=== PATIENT | male | born 1950 | race Caucasian/White ===

== ENCOUNTER 2017-07-30 22:48 | Inpatient (IN) ==
[2017-07-31] MEDS ORDERED: ACETAMINOPHEN 325 MG TABLET PO PRN (00:15)
[2017-07-31] MEDS ORDERED: ONDANSETRON 4 MG/2 ML VIAL IV PRN (00:15)
[2017-07-31] MEDS ORDERED: ZALEPLON 5 MG CAPSULE PO PRN (00:15)
[2017-07-31] MEDS ORDERED: DEXTROSE 50% 25 GM/50 ML VIAL IV PRN ×3 (00:19→05:56)
[2017-07-31] MEDS ORDERED: GLUCAGON 1 MG VIAL IM PRN ×3 (00:19→05:56)
[2017-07-31] MEDS: NITROGLYCERIN 2% OINT 1 INCH/GM PACK TOP SCH ×4 (01:33→18:46)
[2017-07-31] MEDS ORDERED: ALBUTEROL 2.5 MG/3 ML NEB RESP TX PRN (02:03)
[2017-07-31] MEDS ORDERED: guaiFENesin 200 MG/10 ML UDCUP PO PRN (02:52)
[2017-07-31] MEDS ORDERED: CETIRIZINE 10 MG TABLET PO PRN (03:14)
[2017-07-31] MEDS ORDERED: ANORO ELLIPTA INH PRN (03:14)
[2017-07-31] MEDS ORDERED: TICAGRELOR 90 MG TABLET PO ONE (03:30)
[2017-07-31 04:59] LABS: Basophils # 0.1 10*3/uL (0.0-0.2); Eosinophils # 1.7 10*3/uL (0.0-0.87); Eosinophils % 12.9 % (0.00-10.9); Hematocrit 44.7 VOL% (42.0-52.0); Hemoglobin 14.7 GM/DL (14.0-18.0); Immature Granulocytes % 0.5 %; Immature Granulocytes Absolute 0.06 #; Lymphocytes # 2.2 10*3/uL (1.4-4.0); Lymphocytes % 16.3 % (21.2-54.2); Mean Corpuscular HGB Conc 32.9 GM/DL (32-36); Mean Corpuscular Hemoglobin 33 PG (27-34); Mean Corpuscular Volume 101.1 FL (87-102); Mean Platelet Volume 10.4 FL (9.6-12.0); Monocytes # 1.1 10*3/uL (0.11-0.8); Monocytes % 8.2 % (1.7-12.7); Neutrophils # 8.1 10*3/uL (1.4-7.4); Neutrophils % 61.1 % (38.7-73.9); Platelet Count 199 T/CUMM (130-400); Red Blood Count 4.42 MC/CUMM (3.8-5.5); Red Cell Distribution Width 14.6 % (9.3-17.3); White Blood Count 13.2 T/CUMM (4-12)
[2017-07-31 05:27] LABS: Eosinophils 11 % (0-10); Lymphocytes 16 % (20-55); Segmented Neutrophils 68 % (50-85)
[2017-07-31 05:28] LABS: Platelet Estimate Normal
[2017-07-31 05:29] LABS: Total Cells Counted 100
[2017-07-31 05:31] LABS: Albumin 3.2 G/DL (3.4-5.0); Bilirubin,Total 0.9 MG/DL (0.2-1.0); Calcium 8.9 MG/DL (8.5-10.1); Osmolality,Calculated 291.8 MOS/KG (273-304); Potassium 3.7 MMOL/L (3.5-5.1); Risk Ratio 4.34; Total Protein 6.4 G/DL (6.4-8.3); VLDL CHOLESTEROL 21.6 MG/DL
[2017-07-31] MEDS: INSULIN REGULAR 100 UNIT/ML SUBCUT SCH ×4 (07:43→22:28)
[2017-07-31] MEDS: ALBUTEROL/IPRATROPIUM 3 ML NEB RESP TX SCH ×3 (08:00→19:34)
[2017-07-31] MEDS: OMEGA 3 ACID ETHYL ESTERS 1 GM CAPSULE PO SCH ×2 (08:46→20:17)
[2017-07-31] MEDS: LOSARTAN 25 MG TABLET PO SCH (08:46)
[2017-07-31] MEDS: PANTOPRAZOLE 40 MG TABLET PO SCH (08:47)
[2017-07-31] MEDS: TICAGRELOR 90 MG TABLET PO SCH ×2 (08:47→20:17)
[2017-07-31] MEDS ORDERED: predniSONE 20 MG TABLET PO SCH (09:00)
[2017-07-31] MEDS ORDERED: ASPIRIN EC 325 MG TABLET PO SCH (09:00)
[2017-07-31] MEDS: methylPREDNISolone SOD SUC 40 MG/1 ML VIAL IV SCH ×2 (10:42→18:39)
[2017-07-31] MEDS: INSULIN GLARGINE 100 UNIT/ML SUBCUT SCH (11:59)
[2017-07-31] MEDS: LEVOFLOXACIN INJ 750 MG in PREMIX 1 EACH IV SCH (11:59)
[2017-07-31] MEDS ORDERED: VICTOZA SQ SCH (21:00)
[2017-08-01] MEDS: NITROGLYCERIN 2% OINT 1 INCH/GM PACK TOP SCH ×4 (00:08→20:39)
[2017-08-01] MEDS: ALBUTEROL/IPRATROPIUM 3 ML NEB RESP TX SCH ×4 (00:56→19:06)
[2017-08-01] MEDS: methylPREDNISolone SOD SUC 40 MG/1 ML VIAL IV SCH ×3 (01:50→21:37)
[2017-08-01] MEDS: INSULIN GLARGINE 100 UNIT/ML SUBCUT SCH (08:50)
[2017-08-01] MEDS: INSULIN REGULAR 100 UNIT/ML SUBCUT SCH ×4 (08:50→21:05)
[2017-08-01] MEDS: LOSARTAN 25 MG TABLET PO SCH (08:56)
[2017-08-01] MEDS: ASPIRIN CHEW 81 MG TABLET PO SCH (08:57)
[2017-08-01] MEDS: PANTOPRAZOLE 40 MG TABLET PO SCH (08:57)
[2017-08-01] MEDS: TICAGRELOR 90 MG TABLET PO SCH ×2 (08:57→20:39)
[2017-08-01] MEDS: LEVOFLOXACIN INJ 750 MG in PREMIX 1 EACH IV SCH (08:58)
[2017-08-01] MEDS: OMEGA 3 ACID ETHYL ESTERS 1 GM CAPSULE PO SCH ×2 (08:58→20:39)
[2017-08-02] MEDS: ALBUTEROL/IPRATROPIUM 3 ML NEB RESP TX SCH ×4 (01:13→19:17)
[2017-08-02] MEDS: NITROGLYCERIN 2% OINT 1 INCH/GM PACK TOP SCH ×4 (03:26→21:24)
[2017-08-02] MEDS: LEVOFLOXACIN INJ 750 MG in PREMIX 1 EACH IV SCH (09:33)
[2017-08-02] MEDS: INSULIN REGULAR 100 UNIT/ML SUBCUT SCH ×4 (09:34→21:24)
[2017-08-02] MEDS: INSULIN GLARGINE 100 UNIT/ML SUBCUT SCH (09:34)
[2017-08-02] MEDS: methylPREDNISolone SOD SUC 40 MG/1 ML VIAL IV SCH ×2 (09:35→21:23)
[2017-08-02] MEDS: PANTOPRAZOLE 40 MG TABLET PO SCH (09:36)
[2017-08-02] MEDS: TICAGRELOR 90 MG TABLET PO SCH ×2 (09:36→21:24)
[2017-08-02] MEDS: ASPIRIN CHEW 81 MG TABLET PO SCH (09:37)
[2017-08-02] MEDS: LOSARTAN 25 MG TABLET PO SCH (09:37)
[2017-08-02] MEDS: OMEGA 3 ACID ETHYL ESTERS 1 GM CAPSULE PO SCH ×2 (09:43→21:24)
[2017-08-03] MEDS: ALBUTEROL/IPRATROPIUM 3 ML NEB RESP TX SCH ×5 (00:50→19:42)
[2017-08-03] MEDS: NITROGLYCERIN 2% OINT 1 INCH/GM PACK TOP SCH ×2 (05:36→14:57)
[2017-08-03] MEDS ORDERED: NITROGLYCERIN 2% OINT 1 INCH/GM PACK TOP PRN (08:16)
[2017-08-03] MEDS: INSULIN REGULAR 100 UNIT/ML SUBCUT SCH ×4 (09:37→20:33)
[2017-08-03] MEDS: INSULIN GLARGINE 100 UNIT/ML SUBCUT SCH (09:38)
[2017-08-03] MEDS: ASPIRIN CHEW 81 MG TABLET PO SCH (09:39)
[2017-08-03] MEDS: methylPREDNISolone SOD SUC 40 MG/1 ML VIAL IV SCH (09:39)
[2017-08-03] MEDS: OMEGA 3 ACID ETHYL ESTERS 1 GM CAPSULE PO SCH ×2 (09:39→20:33)
[2017-08-03] MEDS: PANTOPRAZOLE 40 MG TABLET PO SCH (09:39)
[2017-08-03] MEDS: LOSARTAN 25 MG TABLET PO SCH (09:39)
[2017-08-03] MEDS: TICAGRELOR 90 MG TABLET PO SCH ×2 (09:39→20:33)
[2017-08-03] MEDS: LEVOFLOXACIN INJ 750 MG in PREMIX 1 EACH IV SCH (09:40)
[2017-08-03] MEDS ORDERED: TAMSULOSIN 0.4 MG CAPSULE PO SCH (11:00)
[2017-08-03] MEDS ORDERED: INSULIN GLARGINE 100 UNIT/ML SUBCUT SCH (13:52)
[2017-08-03 15:06] LABS: Apearance,Urine CLEAR (Clear); Bilirubin,Urine Negative (Negative); Blood, Urine Moderate mg/dL (Negative); Glucose,Urine (UA) >=500 mg/dL (Negative); Ketones,Urine Negative (Negative); Mucus,Urine Occasional /LPF (Occasional); Nitrite,Urine Negative (Negative); Protein,Urine Negative; RBC,Urine 6 /HPF (0-4); Urine Color Yellow (Yellow); Urine Specific Gravity 1.024 (1.001-1.035); Urine Urobilinogen < 2.0 EU/DL (0.2-1.0); WBC,Urine 1 /HPF (0-6)
[2017-08-03] MEDS: TAMSULOSIN 0.4 MG CAPSULE PO SCH (20:33)
[2017-08-03] MEDS ORDERED: FINASTERIDE 5 MG TABLET PO SCH (21:00)
[2017-08-04] MEDS: ALBUTEROL/IPRATROPIUM 3 ML NEB RESP TX SCH ×3 (00:59→13:33)
[2017-08-04] MEDS ORDERED: methylPREDNISolone SOD SUC 40 MG/1 ML VIAL IV SCH (06:00)
[2017-08-04 06:29] LABS: Calcium 9.3 MG/DL (8.5-10.1); Osmolality,Calculated 291.5 MOS/KG (273-304); Potassium 3.8 MMOL/L (3.5-5.1)
[2017-08-04] MEDS: ASPIRIN CHEW 81 MG TABLET PO SCH (08:49)
[2017-08-04] MEDS: TICAGRELOR 90 MG TABLET PO SCH (08:49)
[2017-08-04] MEDS: TAMSULOSIN 0.4 MG CAPSULE PO SCH (08:49)
[2017-08-04] MEDS: OMEGA 3 ACID ETHYL ESTERS 1 GM CAPSULE PO SCH (08:49)
[2017-08-04] MEDS: LOSARTAN 25 MG TABLET PO SCH (08:49)
[2017-08-04] MEDS: PANTOPRAZOLE 40 MG TABLET PO SCH (08:49)
[2017-08-04] MEDS: LEVOFLOXACIN INJ 750 MG in PREMIX 1 EACH IV SCH (08:50)
[2017-08-04] MEDS: INSULIN REGULAR 100 UNIT/ML SUBCUT SCH ×3 (08:50→16:33)
[2017-08-04 16:22] VITALS: BP 112/64
== END 2017-08-04 18:45 | disposition home health service (06) | DRG 191 ==
LOC: INTOOBSV 07-31 00:10 → SUATTDRO 07-31 00:10 → N.TELEN 07-31 00:10 → SUATTDRO 07-31 13:13 → N.2E 07-31 22:23
PROVIDERS: ADMIT Internal Medicine

== ENCOUNTER 2018-08-01 21:33 | Inpatient (IN) ==
[2018-08-01] MEDS ORDERED: ASPIRIN 325 MG TABLET PO STA (21:59)
[2018-08-01] MEDS ORDERED: ONDANSETRON 4 MG/2 ML VIAL IV ONE (21:59)
[2018-08-01] MEDS ORDERED: ALBUTEROL/IPRATROPIUM 3 ML NEB RESP TX STA (21:59)
[2018-08-01 22:32] LABS: Basophils # 0.1 10*3/uL (0.0-0.2); Basophils % 0.3 % (0.0-0.8); Eosinophils # 0.2 10*3/uL (0.0-0.87); Eosinophils % 1.1 % (0.00-10.9); Hematocrit 42.4 VOL% (42.0-52.0); Hemoglobin 13.9 GM/DL (14.0-18.0); Immature Granulocytes Absolute 0.18 #; Lymphocytes # 0.9 10*3/uL (1.4-4.0); Lymphocytes % 5.3 % (21.2-54.2); Mean Corpuscular HGB Conc 32.8 GM/DL (32-36); Mean Corpuscular Hemoglobin 32 PG (27-34); Mean Corpuscular Volume 98.6 FL (87-102); Mean Platelet Volume 11.2 FL (9.6-12.0); Monocytes % 5.7 % (1.7-12.7); Neutrophils # 15.1 10*3/uL (1.4-7.4); Neutrophils % 86.6 % (38.7-73.9); Platelet Count 137 T/CUMM (130-400); Red Cell Distribution Width 14.7 % (9.3-17.3); White Blood Count 17.5 T/CUMM (4-12)
[2018-08-01 22:37] LABS: PT Patient Result 10.5 SECS
[2018-08-01 22:48] LABS: Alanine Aminotransferase 26 U/L (16-61); Albumin 3.3 G/DL (3.4-5.0); Alkaline Phosphatase 71 U/L (45-117); Aspartate Amino Transferase 23 U/L (0-37); Blood Urea Nitrogen 32 MG/DL (7-18); Calcium 8.9 MG/DL (8.5-10.1); Glucose 227 MG/DL (74-106); Osmolality,Calculated 288.7 MOS/KG (273-304); Potassium 3.8 MMOL/L (3.5-5.1); Sodium 138 MMOL/L (136-145); Troponin I < 0.015 NG/ML (0.00-0.045)
[2018-08-01] MEDS ORDERED: VANCOMYCIN INJ 1,250 MG in SODIUM CHLORIDE 0.9% 250 ML IV STA (22:49)
[2018-08-01] MEDS ORDERED: methylPREDNISolone SOD SUC 125 MG/2 ML VIAL IV STA (22:49)
[2018-08-01] MEDS ORDERED: PIPERACILLIN/TAZOBACTAM 3,375 MG in SODIUM CHLORIDE 0.9% 100 ML IV STA (22:49)
[2018-08-01] MEDS ORDERED: PIPERACILLIN/TAZOBACTAM 3,375 MG in SODIUM CHLORIDE 0.9% 100 ML IV ONE (22:50)
[2018-08-01] MEDS ORDERED: ALBUTEROL 2.5 MG/3 ML NEB RESP TX PRN (23:59)
[2018-08-01] MEDS ORDERED: ONDANSETRON 4 MG/2 ML VIAL IV PRN (23:59)
[2018-08-01] MEDS ORDERED: ACETAMINOPHEN 325 MG TABLET PO PRN (23:59)
[2018-08-01] MEDS ORDERED: ZALEPLON 5 MG CAPSULE PO PRN (23:59)
[2018-08-02] MEDS ORDERED: CETIRIZINE 10 MG TABLET PO PRN (00:05)
[2018-08-02] MEDS: ALBUTEROL/IPRATROPIUM 3 ML NEB RESP TX SCH ×4 (00:34→19:19)
[2018-08-02] MEDS ORDERED: VANCOMYCIN INJ 1,250 MG in SODIUM CHLORIDE 0.9% 250 ML IV STA (00:46)
[2018-08-02] MEDS ORDERED: DEXTROSE 50% 25 GM/50 ML VIAL IV PRN (02:22)
[2018-08-02] MEDS ORDERED: GLUCAGON 1 MG VIAL IM PRN (02:22)
[2018-08-02] MEDS ORDERED: PIPERACILLIN/TAZOBACTAM 3,375 MG in SODIUM CHLORIDE 0.9% 100 ML IV ONE (03:30)
[2018-08-02] MEDS ORDERED: VANCOMYCIN INJ 1,250 MG in SODIUM CHLORIDE 0.9% 250 ML IV ONE (03:30)
[2018-08-02 06:53] LABS: Basophils % 0.1 % (0.0-0.8); Eosinophils % 0.1 % (0.00-10.9); Hemoglobin 13.7 GM/DL (14.0-18.0); Immature Granulocytes Absolute 0.18 #; Lymphocytes # 0.7 10*3/uL (1.4-4.0); Lymphocytes % 3.8 % (21.2-54.2); Mean Corpuscular HGB Conc 32.6 GM/DL (32-36); Mean Corpuscular Hemoglobin 32 PG (27-34); Mean Corpuscular Volume 99.1 FL (87-102); Mean Platelet Volume 11.6 FL (9.6-12.0); Monocytes # 0.4 10*3/uL (0.11-0.8); Monocytes % 2.6 % (1.7-12.7); Neutrophils # 15.9 10*3/uL (1.4-7.4); Neutrophils % 92.4 % (38.7-73.9); Platelet Count 123 T/CUMM (130-400); Red Blood Count 4.24 MC/CUMM (3.8-5.5); Red Cell Distribution Width 14.9 % (9.3-17.3); White Blood Count 17.2 T/CUMM (4-12)
[2018-08-02 07:13] LABS: Bilirubin,Total 1.3 MG/DL (0.2-1.0); Calcium 8.9 MG/DL (8.5-10.1); Potassium 3.8 MMOL/L (3.5-5.1); Total Protein 6.8 G/DL (6.4-8.3)
[2018-08-02 07:22] LABS: Band Neutrophils 20 % (0-10); Eosinophils 1 % (0-10); Lymphocytes 4 % (20-55); Segmented Neutrophils 74 % (50-85); Total Cells Counted 100
[2018-08-02 07:23] LABS: Anisocytosis 1+; Platelet Estimate Adequate; Poikilocytosis Slight
[2018-08-02] MEDS: INSULIN REGULAR 100 UNIT/ML SUBCUT SCH ×4 (08:28→21:11)
[2018-08-02] MEDS: OMEGA 3 ACID ETHYL ESTERS 1 GM CAPSULE PO SCH ×2 (08:29→21:11)
[2018-08-02] MEDS: POTASSIUM CHLORIDE 10 MEQ TABLET PO SCH (08:30)
[2018-08-02] MEDS: ASPIRIN CHEW 81 MG TABLET PO SCH (08:30)
[2018-08-02] MEDS: TAMSULOSIN 0.4 MG CAPSULE PO SCH (08:30)
[2018-08-02] MEDS: ATORVASTATIN 80 MG TABLET PO SCH (08:30)
[2018-08-02] MEDS: LOSARTAN 25 MG TABLET PO SCH (08:31)
[2018-08-02] MEDS: guaiFENesin/DM ER 600-30 MG TABLET PO SCH ×2 (08:31→21:11)
[2018-08-02] MEDS: FUROSEMIDE 20 MG TABLET PO SCH (08:31)
[2018-08-02] MEDS: TICAGRELOR 90 MG TABLET PO SCH ×2 (08:31→21:15)
[2018-08-02] MEDS: PIPERACILLIN/TAZOBACTAM 3,375 MG in SODIUM CHLORIDE 0.9% 100 ML IV SCH ×3 (08:32→23:56)
[2018-08-02] MEDS: ENOXAPARIN 40 MG/0.4 ML SYRINGE SUBCUT SCH (08:35)
[2018-08-02] MEDS: methylPREDNISolone SOD SUC 40 MG/1 ML VIAL IV SCH ×2 (08:38→16:43)
[2018-08-02] MEDS ORDERED: Empagliflozin [Jardiance] 25 MG PO SCH (09:00)
[2018-08-02] MEDS ORDERED: Canagliflozin [Invokana] 100 MG PO SCH (09:00)
[2018-08-02] MEDS ORDERED: PANTOPRAZOLE 40 MG TABLET PO SCH (09:00)
[2018-08-02] MEDS: PANTOPRAZOLE 40 MG TABLET PO SCH (11:09)
[2018-08-02] MEDS: AZITHROMYCIN INJ 500 MG in SODIUM CHLORIDE 0.9% 250 ML IV SCH (12:22)
[2018-08-02] MEDS: MONTELUKAST 10 MG TABLET PO SCH (13:17)
[2018-08-02] MEDS: INSULIN NPH 100 UNIT/ML SUBCUT SCH (16:44)
[2018-08-02] MEDS ORDERED: Liraglutide [Victoza 3-Pak] 1.8 MG SQ SCH (21:00)
[2018-08-02] MEDS: FINASTERIDE 5 MG TABLET PO SCH (21:11)
[2018-08-03] MEDS: ALBUTEROL/IPRATROPIUM 3 ML NEB RESP TX SCH ×4 (00:26→19:47)
[2018-08-03] MEDS: MONTELUKAST 10 MG TABLET PO SCH (09:02)
[2018-08-03] MEDS: PANTOPRAZOLE 40 MG TABLET PO SCH (09:02)
[2018-08-03] MEDS: guaiFENesin/DM ER 600-30 MG TABLET PO SCH ×2 (09:02→20:38)
[2018-08-03] MEDS: ATORVASTATIN 80 MG TABLET PO SCH (09:02)
[2018-08-03] MEDS: FUROSEMIDE 20 MG TABLET PO SCH (09:02)
[2018-08-03] MEDS: POTASSIUM CHLORIDE 10 MEQ TABLET PO SCH (09:02)
[2018-08-03] MEDS: OMEGA 3 ACID ETHYL ESTERS 1 GM CAPSULE PO SCH ×2 (09:02→20:38)
[2018-08-03] MEDS: ASPIRIN CHEW 81 MG TABLET PO SCH (09:03)
[2018-08-03] MEDS: LOSARTAN 25 MG TABLET PO SCH (09:03)
[2018-08-03] MEDS: TAMSULOSIN 0.4 MG CAPSULE PO SCH (09:03)
[2018-08-03] MEDS: TICAGRELOR 90 MG TABLET PO SCH ×2 (09:03→20:38)
[2018-08-03] MEDS: ENOXAPARIN 40 MG/0.4 ML SYRINGE SUBCUT SCH (09:03)
[2018-08-03] MEDS: INSULIN NPH 100 UNIT/ML SUBCUT SCH ×2 (09:04→16:32)
[2018-08-03] MEDS: methylPREDNISolone SOD SUC 40 MG/1 ML VIAL IV SCH ×3 (09:05→16:33)
[2018-08-03] MEDS: PIPERACILLIN/TAZOBACTAM 3,375 MG in SODIUM CHLORIDE 0.9% 100 ML IV SCH ×2 (09:05→16:33)
[2018-08-03] MEDS: INSULIN REGULAR 100 UNIT/ML SUBCUT SCH ×4 (10:02→20:38)
[2018-08-03] MEDS: AZITHROMYCIN INJ 500 MG in SODIUM CHLORIDE 0.9% 250 ML IV SCH (13:00)
[2018-08-03] MEDS: FINASTERIDE 5 MG TABLET PO SCH (20:38)
[2018-08-04] MEDS: ALBUTEROL/IPRATROPIUM 3 ML NEB RESP TX SCH ×4 (01:20→19:03)
[2018-08-04] MEDS: methylPREDNISolone SOD SUC 40 MG/1 ML VIAL IV SCH ×3 (01:21→20:31)
[2018-08-04] MEDS: PIPERACILLIN/TAZOBACTAM 3,375 MG in SODIUM CHLORIDE 0.9% 100 ML IV SCH ×3 (01:25→16:35)
[2018-08-04 06:10] LABS: Basophils % 0.1 % (0.0-0.8); Hematocrit 38.1 VOL% (42.0-52.0); Hemoglobin 12.5 GM/DL (14.0-18.0); Immature Granulocytes % 1.2 %; Immature Granulocytes Absolute 0.25 #; Lymphocytes # 0.5 10*3/uL (1.4-4.0); Lymphocytes % 2.3 % (21.2-54.2); Mean Corpuscular HGB Conc 32.8 GM/DL (32-36); Mean Corpuscular Hemoglobin 33 PG (27-34); Mean Platelet Volume 11.2 FL (9.6-12.0); Monocytes # 0.5 10*3/uL (0.11-0.8); Monocytes % 2.4 % (1.7-12.7); Platelet Count 154 T/CUMM (130-400); Red Blood Count 3.85 MC/CUMM (3.8-5.5); Red Cell Distribution Width 14.8 % (9.3-17.3); White Blood Count 21.3 T/CUMM (4-12)
[2018-08-04 06:27] LABS: Calcium 8.6 MG/DL (8.5-10.1); Osmolality,Calculated 291.5 MOS/KG (273-304); Potassium 3.9 MMOL/L (3.5-5.1)
[2018-08-04 07:43] LABS: Lymphocytes 5 % (20-55); Segmented Neutrophils 94 % (50-85); Total Cells Counted 100
[2018-08-04 07:44] LABS: Hypochromasia 1+; Platelet Estimate Adequate
[2018-08-04] MEDS: TICAGRELOR 90 MG TABLET PO SCH ×2 (08:47→20:24)
[2018-08-04] MEDS: TAMSULOSIN 0.4 MG CAPSULE PO SCH (08:47)
[2018-08-04] MEDS: ASPIRIN CHEW 81 MG TABLET PO SCH (08:47)
[2018-08-04] MEDS: ATORVASTATIN 80 MG TABLET PO SCH (08:47)
[2018-08-04] MEDS: FUROSEMIDE 20 MG TABLET PO SCH (08:47)
[2018-08-04] MEDS: OMEGA 3 ACID ETHYL ESTERS 1 GM CAPSULE PO SCH ×2 (08:47→20:25)
[2018-08-04] MEDS: POTASSIUM CHLORIDE 10 MEQ TABLET PO SCH (08:47)
[2018-08-04] MEDS: MONTELUKAST 10 MG TABLET PO SCH ×2 (08:48→20:26)
[2018-08-04] MEDS: LOSARTAN 25 MG TABLET PO SCH (08:48)
[2018-08-04] MEDS: guaiFENesin/DM ER 600-30 MG TABLET PO SCH (08:48)
[2018-08-04] MEDS: PANTOPRAZOLE 40 MG TABLET PO SCH (08:48)
[2018-08-04] MEDS: INSULIN REGULAR 100 UNIT/ML SUBCUT SCH ×4 (08:48→20:57)
[2018-08-04] MEDS: INSULIN NPH 100 UNIT/ML SUBCUT SCH ×2 (08:49→16:34)
[2018-08-04] MEDS: ENOXAPARIN 40 MG/0.4 ML SYRINGE SUBCUT SCH (08:49)
[2018-08-04] MEDS: AZITHROMYCIN INJ 500 MG in SODIUM CHLORIDE 0.9% 250 ML IV SCH (12:41)
[2018-08-04] MEDS: DORNASE ALFA 2.5 MG/2.5 ML VIAL RESP TX SCH (19:10)
[2018-08-04] MEDS: FINASTERIDE 5 MG TABLET PO SCH (20:26)
[2018-08-05] MEDS: ALBUTEROL/IPRATROPIUM 3 ML NEB RESP TX SCH ×4 (00:45→19:20)
[2018-08-05] MEDS: PIPERACILLIN/TAZOBACTAM 3,375 MG in SODIUM CHLORIDE 0.9% 100 ML IV SCH ×3 (01:10→17:49)
[2018-08-05 06:19] LABS: Basophils % 0.2 % (0.0-0.8); Hemoglobin 12.9 GM/DL (14.0-18.0); Immature Granulocytes % 1.7 %; Immature Granulocytes Absolute 0.27 #; Lymphocytes # 1.2 10*3/uL (1.4-4.0); Lymphocytes % 7.7 % (21.2-54.2); Mean Corpuscular HGB Conc 33.1 GM/DL (32-36); Mean Corpuscular Hemoglobin 33 PG (27-34); Mean Platelet Volume 11.2 FL (9.6-12.0); Monocytes # 0.8 10*3/uL (0.11-0.8); Monocytes % 4.9 % (1.7-12.7); Neutrophils # 13.6 10*3/uL (1.4-7.4); Neutrophils % 85.5 % (38.7-73.9); Platelet Count 158 T/CUMM (130-400); Red Blood Count 3.94 MC/CUMM (3.8-5.5); Red Cell Distribution Width 14.8 % (9.3-17.3); White Blood Count 15.9 T/CUMM (4-12)
[2018-08-05 06:45] LABS: Calcium 8.8 MG/DL (8.5-10.1); Osmolality,Calculated 288.4 MOS/KG (273-304)
[2018-08-05] MEDS: DORNASE ALFA 2.5 MG/2.5 ML VIAL RESP TX SCH ×2 (07:31→19:20)
[2018-08-05] MEDS: INSULIN REGULAR 100 UNIT/ML SUBCUT SCH ×4 (07:59→21:14)
[2018-08-05] MEDS: ENOXAPARIN 40 MG/0.4 ML SYRINGE SUBCUT SCH (09:22)
[2018-08-05] MEDS: methylPREDNISolone SOD SUC 40 MG/1 ML VIAL IV SCH ×2 (09:22→21:18)
[2018-08-05] MEDS: INSULIN NPH 100 UNIT/ML SUBCUT SCH ×2 (09:22→17:47)
[2018-08-05] MEDS: FUROSEMIDE 20 MG TABLET PO SCH (09:23)
[2018-08-05] MEDS: ASPIRIN CHEW 81 MG TABLET PO SCH (09:23)
[2018-08-05] MEDS: MONTELUKAST 10 MG TABLET PO SCH ×2 (09:23→22:17)
[2018-08-05] MEDS: ATORVASTATIN 80 MG TABLET PO SCH (09:23)
[2018-08-05] MEDS: POTASSIUM CHLORIDE 10 MEQ TABLET PO SCH (09:24)
[2018-08-05] MEDS: OMEGA 3 ACID ETHYL ESTERS 1 GM CAPSULE PO SCH ×2 (09:24→21:15)
[2018-08-05] MEDS: TICAGRELOR 90 MG TABLET PO SCH ×2 (09:24→21:16)
[2018-08-05] MEDS: PANTOPRAZOLE 40 MG TABLET PO SCH (09:24)
[2018-08-05] MEDS: CHOLECALCIFEROL 1,000 UNIT TABLET PO SCH (09:24)
[2018-08-05] MEDS: TAMSULOSIN 0.4 MG CAPSULE PO SCH (09:24)
[2018-08-05] MEDS: LOSARTAN 25 MG TABLET PO SCH (09:27)
[2018-08-05] MEDS: AZITHROMYCIN INJ 500 MG in SODIUM CHLORIDE 0.9% 250 ML IV SCH (13:14)
[2018-08-05] MEDS: FINASTERIDE 5 MG TABLET PO SCH (21:16)
[2018-08-06] MEDS: ALBUTEROL/IPRATROPIUM 3 ML NEB RESP TX SCH ×2 (00:31→07:07)
[2018-08-06] MEDS: PIPERACILLIN/TAZOBACTAM 3,375 MG in SODIUM CHLORIDE 0.9% 100 ML IV SCH ×2 (01:19→08:17)
[2018-08-06 05:55] LABS: Basophils % 0.2 % (0.0-0.8); Hematocrit 39.8 VOL% (42.0-52.0); Hemoglobin 13.1 GM/DL (14.0-18.0); Immature Granulocytes % 1.5 %; Immature Granulocytes Absolute 0.18 #; Lymphocytes # 1.5 10*3/uL (1.4-4.0); Lymphocytes % 12.4 % (21.2-54.2); Mean Corpuscular HGB Conc 32.9 GM/DL (32-36); Mean Corpuscular Hemoglobin 32 PG (27-34); Mean Corpuscular Volume 97.5 FL (87-102); Mean Platelet Volume 10.7 FL (9.6-12.0); Monocytes # 0.6 10*3/uL (0.11-0.8); Monocytes % 4.9 % (1.7-12.7); Platelet Count 152 T/CUMM (130-400); Red Blood Count 4.08 MC/CUMM (3.8-5.5); Red Cell Distribution Width 14.6 % (9.3-17.3); White Blood Count 12.3 T/CUMM (4-12)
[2018-08-06 06:26] LABS: Calcium 8.6 MG/DL (8.5-10.1); Osmolality,Calculated 283.8 MOS/KG (273-304)
[2018-08-06 06:30] LABS: Hypochromasia 1+; Lymphocytes 18 % (20-55); Platelet Estimate Normal; Segmented Neutrophils 77 % (50-85); Total Cells Counted 100
[2018-08-06] MEDS: DORNASE ALFA 2.5 MG/2.5 ML VIAL RESP TX SCH (07:07)
[2018-08-06] MEDS: INSULIN REGULAR 100 UNIT/ML SUBCUT SCH ×2 (07:30→12:45)
[2018-08-06] MEDS: POTASSIUM CHLORIDE 10 MEQ TABLET PO SCH (08:13)
[2018-08-06] MEDS: CHOLECALCIFEROL 1,000 UNIT TABLET PO SCH (08:13)
[2018-08-06] MEDS: TAMSULOSIN 0.4 MG CAPSULE PO SCH (08:14)
[2018-08-06] MEDS: TICAGRELOR 90 MG TABLET PO SCH (08:14)
[2018-08-06] MEDS: FUROSEMIDE 20 MG TABLET PO SCH (08:14)
[2018-08-06] MEDS: ATORVASTATIN 80 MG TABLET PO SCH (08:14)
[2018-08-06] MEDS: LOSARTAN 25 MG TABLET PO SCH (08:14)
[2018-08-06] MEDS: MONTELUKAST 10 MG TABLET PO SCH (08:14)
[2018-08-06] MEDS: OMEGA 3 ACID ETHYL ESTERS 1 GM CAPSULE PO SCH (08:14)
[2018-08-06] MEDS: PANTOPRAZOLE 40 MG TABLET PO SCH (08:15)
[2018-08-06] MEDS: ASPIRIN CHEW 81 MG TABLET PO SCH (08:15)
[2018-08-06] MEDS: ENOXAPARIN 40 MG/0.4 ML SYRINGE SUBCUT SCH (08:15)
[2018-08-06] MEDS: INSULIN NPH 100 UNIT/ML SUBCUT SCH (08:16)
[2018-08-06] MEDS: methylPREDNISolone SOD SUC 40 MG/1 ML VIAL IV SCH (08:16)
[2018-08-06 12:07] VITALS: BP 120/69
== END 2018-08-06 12:00 | disposition home or self-care (01) | DRG 190 ==
LOC: N.ED 21:33 → N.EDINP 23:59 → N.5E 08-02 01:30
PROVIDERS: ADMIT Hospitalist; ATTEND Hospitalist

== ENCOUNTER 2018-10-30 14:55 | Observation (INO) ==
[2018-10-30] MEDS ORDERED: MORPHINE 4 MG/1 ML VIAL IV STA (15:38)
[2018-10-30] MEDS ORDERED: FUROSEMIDE 100 MG/10 ML VIAL IV STA (15:38)
[2018-10-30] MEDS ORDERED: ONDANSETRON 4 MG/2 ML VIAL IV STA (15:38)
[2018-10-30] MEDS ORDERED: methylPREDNISolone SOD SUC 125 MG/2 ML VIAL IV STA (15:38)
[2018-10-30] MEDS ORDERED: ASPIRIN 325 MG TABLET PO STA (15:38)
[2018-10-30] MEDS ORDERED: ALBUTEROL/IPRATROPIUM 3 ML NEB RESP TX STA (15:38)
[2018-10-30 15:49] LABS: Basophils % 0.7 % (0.0-0.8); Eosinophils # 0.2 10*3/uL (0.0-0.87); Eosinophils % 3.3 % (0.00-10.9); Hematocrit 44.2 VOL% (42.0-52.0); Hemoglobin 14.3 GM/DL (14.0-18.0); Immature Granulocytes % 1.3 %; Immature Granulocytes Absolute 0.08 #; Lymphocytes # 0.6 10*3/uL (1.4-4.0); Lymphocytes % 9.9 % (21.2-54.2); Mean Corpuscular HGB Conc 32.4 GM/DL (32-36); Mean Corpuscular Volume 98.9 FL (87-102); Mean Platelet Volume 10.6 FL (9.6-12.0); Monocytes % 9.2 % (1.7-12.7); Neutrophils % 75.6 % (38.7-73.9); Platelet Count 165 T/CUMM (130-400); Red Blood Count 4.47 MC/CUMM (3.8-5.5); Red Cell Distribution Width 14.6 % (9.3-17.3); White Blood Count 6.1 T/CUMM (4-12)
[2018-10-30] MEDS ORDERED: FUROSEMIDE 20 MG/2 ML VIAL ONE (15:49)
[2018-10-30 15:55] LABS: PT Patient Result 10.8 SECS
[2018-10-30 15:58] LABS: Albumin 3.7 G/DL (3.4-5.0); Bilirubin,Total 1.1 MG/DL (0.2-1.0); Calcium 9.2 MG/DL (8.5-10.1); Osmolality,Calculated 286.7 MOS/KG (273-304)
[2018-10-30 16:22] LABS: ABG Base Excess 2.6 MMOL/L (-2.5-2.5); ABG HCO3 26.6 MMOL/L (20-26); ABG Oxygen Saturation 93.7 % (95-100); ABG PCO2 39.6 MM HG (35-48); ABG PH 7.439 (7.35-7.45); ABG PO2 71.5 MM HG (80-95); ABG TCO2 22.8 MMOL/L (23-27)
[2018-10-30 18:07] LABS: Apearance,Urine CLEAR (Clear); Bilirubin,Urine Negative (Negative); Blood, Urine Negative (Negative); Glucose,Urine (UA) >=500 mg/dL (Negative); Ketones,Urine Negative (Negative); Mucus,Urine Occasional /LPF (Occasional); Nitrite,Urine Negative (Negative); Protein,Urine Negative; RBC,Urine 1 /HPF (0-4); Squamous Epithelial Cell,Urine Occasional /HPF (0-10); Urine Color Straw (Yellow); Urine Specific Gravity 1.009 (1.001-1.035); Urine Urobilinogen < 2.0 EU/DL (0.2-1.0); WBC,Urine <1 /HPF (0-6)
[2018-10-30 18:11] LABS: Barbiturates Screen,Urine Negative (Negative); Benzodiazepines Screen,Urine Negative (Negative); Cannabinoid Screen,Urine Negative (Negative); Opiate Screen,Urine Negative (Negative); Phencyclidine Screen,Urine Negative (Negative)
[2018-10-30] MEDS ORDERED: ACETAMINOPHEN 325 MG TABLET PO PRN (19:17)
[2018-10-30] MEDS ORDERED: MORPHINE 4 MG/1 ML VIAL IV PRN (19:17)
[2018-10-30] MEDS ORDERED: ALBUTEROL 2.5 MG/3 ML NEB RESP TX PRN (19:20)
[2018-10-30] MEDS ORDERED: NON-FORMULARY MEDICATION (Umeclidinium-Vilanterol [Anoro Ellipta] 1 PUFF) INH PRN (19:20)
[2018-10-30] MEDS ORDERED: ALBUTEROL/IPRATROPIUM 3 ML NEB RESP TX PRN (19:22)
[2018-10-30] MEDS: FORMOTEROL 20 MCG/2 ML NEB RESP TX SCH (20:45)
[2018-10-30] MEDS: BUDESONIDE 0.5 MG/2 ML NEB RESP TX SCH (20:53)
[2018-10-30] MEDS ORDERED: TICAGRELOR 90 MG TABLET PO SCH (21:00)
[2018-10-30] MEDS: ENOXAPARIN 30 MG/0.3 ML SYRINGE SUBCUT SCH (21:16)
[2018-10-30] MEDS: TAMSULOSIN 0.4 MG CAPSULE PO SCH (21:17)
[2018-10-30] MEDS: OMEGA 3 ACID ETHYL ESTERS 1 GM CAPSULE PO SCH (21:17)
[2018-10-30] MEDS: FINASTERIDE 5 MG TABLET PO SCH (21:17)
[2018-10-30] MEDS: SODIUM CHLORIDE 0.9% 1,000 ML IV SCH (22:07)
[2018-10-31 05:30] LABS: Basophils % 0.3 % (0.0-0.8); Hematocrit 44.1 VOL% (42.0-52.0); Hemoglobin 14.4 GM/DL (14.0-18.0); Immature Granulocytes % 1.2 %; Immature Granulocytes Absolute 0.07 #; Lymphocytes # 0.7 10*3/uL (1.4-4.0); Lymphocytes % 11.6 % (21.2-54.2); Mean Corpuscular HGB Conc 32.7 GM/DL (32-36); Mean Corpuscular Volume 99.1 FL (87-102); Mean Platelet Volume 11.2 FL (9.6-12.0); Monocytes % 4.3 % (1.7-12.7); Neutrophils % 82.6 % (38.7-73.9); Platelet Count 166 T/CUMM (130-400); Red Blood Count 4.45 MC/CUMM (3.8-5.5); Red Cell Distribution Width 14.7 % (9.3-17.3); White Blood Count 5.8 T/CUMM (4-12)
[2018-10-31 05:47] LABS: Albumin 3.3 G/DL (3.4-5.0); Bilirubin,Total 1.1 MG/DL (0.2-1.0); Calcium 9.2 MG/DL (8.5-10.1); Osmolality,Calculated 290.5 MOS/KG (273-304); Risk Ratio 5.65; Total Protein 7.2 G/DL (6.4-8.3); VLDL CHOLESTEROL 16.8 MG/DL
[2018-10-31] MEDS: FORMOTEROL 20 MCG/2 ML NEB RESP TX SCH ×2 (08:00→20:15)
[2018-10-31] MEDS: BUDESONIDE 0.5 MG/2 ML NEB RESP TX SCH ×2 (08:00→20:15)
[2018-10-31] MEDS ORDERED: TICAGRELOR 90 MG TABLET PO SCH (08:51)
[2018-10-31] MEDS ORDERED: ASPIRIN CHEW 81 MG TABLET PO SCH (09:00)
[2018-10-31] MEDS ORDERED: predniSONE 20 MG TABLET PO SCH (09:00)
[2018-10-31] MEDS: PANTOPRAZOLE 40 MG TABLET PO SCH (09:11)
[2018-10-31] MEDS: OMEGA 3 ACID ETHYL ESTERS 1 GM CAPSULE PO SCH ×2 (09:11→20:20)
[2018-10-31] MEDS: CETIRIZINE 10 MG TABLET PO SCH (09:12)
[2018-10-31] MEDS: ATORVASTATIN 80 MG TABLET PO SCH (09:12)
[2018-10-31] MEDS: TAMSULOSIN 0.4 MG CAPSULE PO SCH ×2 (09:13→20:20)
[2018-10-31] MEDS: ESCITALOPRAM 10 MG TABLET PO SCH (09:13)
[2018-10-31] MEDS: ASPIRIN EC 81 MG TABLET PO SCH (09:23)
[2018-10-31 09:37] LABS: Free T4 (Free Thyroxine) 0.27 NG/DL (0.76-1.46); Total Protein 7.2 G/DL (6.4-8.3)
[2018-10-31] MEDS: ISOSORBIDE MONONITRATE 30 MG TABLET PO SCH (10:35)
[2018-10-31] MEDS: TICAGRELOR 90 MG TABLET PO SCH ×2 (10:40→20:20)
[2018-10-31] MEDS ORDERED: GLUCAGON 1 MG VIAL IM PRN (12:20)
[2018-10-31] MEDS ORDERED: DEXTROSE 50% 25 GM/50 ML VIAL IV PRN (12:20)
[2018-10-31] MEDS: INSULIN REGULAR 100 UNIT/ML SUBCUT SCH ×2 (16:44→22:00)
[2018-10-31] MEDS: SODIUM CHLORIDE 0.9% 1,000 ML IV SCH (16:48)
[2018-10-31] MEDS: ENOXAPARIN 30 MG/0.3 ML SYRINGE SUBCUT SCH (20:20)
[2018-10-31] MEDS: FINASTERIDE 5 MG TABLET PO SCH (20:20)
[2018-11-01 06:06] LABS: Basophils % 0.3 % (0.0-0.8); Eosinophils # 0.1 10*3/uL (0.0-0.87); Eosinophils % 0.8 % (0.00-10.9); Hematocrit 36.9 VOL% (42.0-52.0); Hemoglobin 11.6 GM/DL (14.0-18.0); Immature Granulocytes % 0.5 %; Immature Granulocytes Absolute 0.05 #; Lymphocytes # 1.4 10*3/uL (1.4-4.0); Lymphocytes % 13.5 % (21.2-54.2); Mean Corpuscular HGB Conc 31.4 GM/DL (32-36); Mean Corpuscular Volume 101.4 FL (87-102); Mean Platelet Volume 11.2 FL (9.6-12.0); Neutrophils % 76.9 % (38.7-73.9); Platelet Count 154 T/CUMM (130-400); Red Blood Count 3.64 MC/CUMM (3.8-5.5); Red Cell Distribution Width 14.8 % (9.3-17.3); White Blood Count 10.1 T/CUMM (4-12)
[2018-11-01] MEDS: SODIUM CHLORIDE 0.9% 1,000 ML IV SCH (06:10)
[2018-11-01] MEDS ORDERED: LEVOTHYROXINE 50 MCG TABLET PO SCH (06:30)
[2018-11-01 06:46] LABS: Albumin 2.8 G/DL (3.4-5.0); Bilirubin,Total 0.7 MG/DL (0.2-1.0); Calcium 8.7 MG/DL (8.5-10.1); Osmolality,Calculated 295.1 MOS/KG (273-304); Total Protein 5.7 G/DL (6.4-8.3)
[2018-11-01 07:30] VITALS: BP 104/60
[2018-11-01] MEDS: FORMOTEROL 20 MCG/2 ML NEB RESP TX SCH (08:10)
[2018-11-01] MEDS: BUDESONIDE 0.5 MG/2 ML NEB RESP TX SCH (08:10)
[2018-11-01] MEDS ORDERED: INSULIN GLARGINE 100 UNIT/ML SUBCUT SCH (09:00)
[2018-11-01] MEDS: INSULIN REGULAR 100 UNIT/ML SUBCUT SCH (09:20)
[2018-11-01] MEDS: TICAGRELOR 90 MG TABLET PO SCH (09:29)
[2018-11-01] MEDS: ISOSORBIDE MONONITRATE 30 MG TABLET PO SCH (09:29)
[2018-11-01] MEDS: ATORVASTATIN 80 MG TABLET PO SCH (09:29)
[2018-11-01] MEDS: OMEGA 3 ACID ETHYL ESTERS 1 GM CAPSULE PO SCH (09:29)
[2018-11-01] MEDS: TAMSULOSIN 0.4 MG CAPSULE PO SCH (09:29)
[2018-11-01] MEDS: PANTOPRAZOLE 40 MG TABLET PO SCH (09:30)
[2018-11-01] MEDS: ESCITALOPRAM 10 MG TABLET PO SCH (09:30)
[2018-11-01] MEDS: CETIRIZINE 10 MG TABLET PO SCH (09:30)
[2018-11-01] MEDS: ASPIRIN EC 81 MG TABLET PO SCH (09:30)
[2018-11-02 06:54] LABS: Total Protein (Chem) 7.2 G/DL (6.4-8.3)
[2018-11-02 10:17] LABS: Albumin (SPE) 4.6 G/DL (3.2-5.3); Albumin (SPE) Rel % 63.4 %; Alpha 1 (SPE) 0.2 G/DL (0.1-0.4); Alpha 1 (SPE) Rel % 2.3 %; Alpha 2 (SPE) 0.8 G/DL (0.4-1.0); Alpha 2 (SPE) Rel % 11.6 %; Beta (SPE) 0.8 G/DL (0.5-1.1); Beta (SPE) Rel % 11.8 %; Gamma (SPE) 0.8 G/DL (0.7-1.7); Gamma (SPE) Rel % 10.9 %
== END 2018-11-01 10:48 | disposition home or self-care (01) ==
LOC: N.ED 14:55 → N.TELES 19:16 → INTOOBSV 19:16 → N.TELES 20:15
PROVIDERS: ADMIT Internal Medicine; ATTEND Internal Medicine

== ENCOUNTER 2022-04-04 14:49 | Inpatient (IN) ==
[2022-04-04 15:44] LABS: Basophils # 0.1 10*3/uL (0.0-0.2); Basophils % 0.6 % (0.0-0.8); Eosinophils # 0.1 10*3/uL (0.0-0.87); Eosinophils % 1.5 % (0.00-10.9); Hematocrit 45.7 VOL% (42.0-52.0); Hemoglobin 14.1 GM/DL (14.0-18.0); Immature Granulocytes % 0.5 %; Immature Granulocytes Absolute 0.04 #; Lymphocytes # 1.3 10*3/uL (1.4-4.0); Lymphocytes % 14.9 % (21.2-54.2); Mean Corpuscular HGB Conc 30.9 GM/DL (32-36); Mean Platelet Volume 11.4 FL (9.6-12.0); Monocytes # 0.6 10*3/uL (0.11-0.8); Monocytes % 6.4 % (1.7-12.7); Neutrophils % 76.1 % (38.7-73.9); Platelet Count 174 T/CUMM (130-400); Red Blood Count 4.76 MC/CUMM (3.8-5.5); Red Cell Distribution Width 15.9 % (9.3-17.3); White Blood Count 8.6 T/CUMM (4-12)
[2022-04-04 15:59] LABS: Albumin 3.4 G/DL (3.4-5.0); Bilirubin,Total 1.1 MG/DL (0.20-1.00); Calcium 9.4 MG/DL (8.5-10.1); Osmolality,Calculated 288.1 MOS/KG (273-304); Potassium 3.3 MMOL/L (3.5-5.1); Total Protein 6.8 G/DL (6.4-8.2)
[2022-04-04 16:38] LABS: Bacteria,Urine Occasional /HPF (Few); Mucus,Urine Occasional /LPF (Occasional); RBC,Urine 18 /HPF (0-4)
[2022-04-04 16:43] LABS: Bilirubin,Urine Negative (Negative); Blood, Urine Moderate mg/dL (Negative); Glucose,Urine (UA) 500 mg/dL (Negative); Ketones,Urine Negative (Negative); Nitrite,Urine Negative (Negative); Protein,Urine Negative (Negative); Urine Appearance Clear (Clear); Urine Color Yellow (Yellow); Urine Urobilinogen 0.2 eU/dL (<2.0)
[2022-04-04] MEDS ORDERED: POTASSIUM CHLORIDE 20 MEQ TABLET PO ONE (16:58)
[2022-04-04] MEDS ORDERED: MORPHINE 2 MG/1 ML SYRINGE IV PRN (17:22)
[2022-04-04] MEDS ORDERED: NICOTINE 21 MG/24 HR PATCH TRANSDERM PRN (17:22)
[2022-04-04] MEDS ORDERED: ACETAMINOPHEN 325 MG TABLET PO PRN (17:22)
[2022-04-04] MEDS ORDERED: ONDANSETRON 4 MG/2 ML VIAL IV PRN (17:22)
[2022-04-04] MEDS ORDERED: guaiFENesin/DM ER 600-30 MG TABLET PO PRN (17:22)
[2022-04-04] MEDS ORDERED: hydrALAZINE 20 MG/1 ML VIAL IV PRN (17:22)
[2022-04-04] MEDS ORDERED: ZALEPLON 5 MG CAPSULE PO PRN (17:22)
[2022-04-04] MEDS ORDERED: ALBUTEROL 1.25 MG/3 ML NEB RESP TX PRN (17:33)
[2022-04-04] MEDS ORDERED: hydrOXYzine HCL 25 MG TABLET PO PRN (17:33)
[2022-04-04] MEDS ORDERED: GLUCAGON 1 MG VIAL IM PRN (18:05)
[2022-04-04] MEDS ORDERED: DEXTROSE 10% 250 ML BAG IV PRN (18:12)
[2022-04-04] MEDS ORDERED: carvediloL 3.125 MG TABLET PO STA (18:17)
[2022-04-04] MEDS ORDERED: methylPREDNISolone SOD SUC 40 MG/1 ML VIAL IV SCH (18:30)
[2022-04-04] MEDS: TAMSULOSIN 0.4 MG CAPSULE PO SCH (22:45)
[2022-04-04] MEDS: NON-FORMULARY MEDICATION (Liraglutide [Victoza 2-Pak] 0.6 mg/0.1 mL (18 mg/3 mL) Pen Injec SUBCUT SCH (22:45)
[2022-04-04] MEDS: ENOXAPARIN 40 MG/0.4 ML SYRINGE SUBCUT SCH (22:45)
[2022-04-04] MEDS: DOCUSATE SODIUM 100 MG CAPSULE PO SCH (22:45)
[2022-04-04] MEDS: FUROSEMIDE 40 MG/4 ML VIAL IV SCH (22:46)
[2022-04-04] MEDS: INSULIN LISPRO 100 UNIT/ML SUBCUT SCH (22:46)
[2022-04-04] MEDS: busPIRone 5 MG TABLET PO SCH (22:53)
[2022-04-05 05:23] LABS: Basophils # 0.1 10*3/uL (0.0-0.2); Basophils % 0.6 % (0.0-0.8); Eosinophils # 0.1 10*3/uL (0.0-0.87); Eosinophils % 1.5 % (0.00-10.9); Hematocrit 41.9 VOL% (42.0-52.0); Hemoglobin 13.1 GM/DL (14.0-18.0); Immature Granulocytes % 0.5 %; Immature Granulocytes Absolute 0.04 #; Lymphocytes # 1.6 10*3/uL (1.4-4.0); Lymphocytes % 18.4 % (21.2-54.2); Mean Corpuscular HGB Conc 31.3 GM/DL (32-36); Monocytes # 0.7 10*3/uL (0.11-0.8); Monocytes % 8.2 % (1.7-12.7); Neutrophils % 70.8 % (38.7-73.9); Platelet Count 181 T/CUMM (130-400); Red Blood Count 4.41 MC/CUMM (3.8-5.5); Red Cell Distribution Width 15.9 % (9.3-17.3); White Blood Count 8.6 T/CUMM (4-12)
[2022-04-05 05:53] LABS: Albumin 3.2 G/DL (3.4-5.0); Bilirubin,Total 1.5 MG/DL (0.20-1.00); Calcium 9.4 MG/DL (8.5-10.1); Osmolality,Calculated 292.7 MOS/KG (273-304); Potassium 3.9 MMOL/L (3.5-5.1); Risk Ratio 2.26; Thyroid Stimulating Hormone 2.39 uIU/ml (0.358-3.74); Total Protein 6.3 G/DL (6.4-8.2)
[2022-04-05] MEDS: LEVOTHYROXINE 100 MCG TABLET PO SCH (06:23)
[2022-04-05] MEDS: INSULIN LISPRO 100 UNIT/ML SUBCUT SCH ×4 (07:16→21:39)
[2022-04-05] MEDS ORDERED: metFORMIN 500 MG TABLET PO SCH (08:00)
[2022-04-05] MEDS ORDERED: DAPAGLIFLOZIN 10 MG TABLET PO SCH (09:00)
[2022-04-05] MEDS: TAMSULOSIN 0.4 MG CAPSULE PO SCH ×2 (09:49→21:38)
[2022-04-05] MEDS: FINASTERIDE 5 MG TABLET PO SCH (09:49)
[2022-04-05] MEDS: DOCUSATE SODIUM 100 MG CAPSULE PO SCH ×2 (09:49→21:38)
[2022-04-05] MEDS: ESCITALOPRAM 10 MG TABLET PO SCH (09:50)
[2022-04-05] MEDS: ASPIRIN EC 81 MG TABLET PO SCH (09:50)
[2022-04-05] MEDS: PANTOPRAZOLE 40 MG TABLET PO SCH (09:50)
[2022-04-05] MEDS: FUROSEMIDE 40 MG/4 ML VIAL IV SCH ×2 (09:50→21:39)
[2022-04-05] MEDS: busPIRone 5 MG TABLET PO SCH ×2 (09:50→21:38)
[2022-04-05] MEDS: ATORVASTATIN 80 MG TABLET PO SCH (09:50)
[2022-04-05] MEDS: ENOXAPARIN 40 MG/0.4 ML SYRINGE SUBCUT SCH (21:39)
[2022-04-05] MEDS: NON-FORMULARY MEDICATION (Liraglutide [Victoza 2-Pak] 0.6 mg/0.1 mL (18 mg/3 mL) Pen Injec SUBCUT SCH (21:45)
[2022-04-06] MEDS: LEVOTHYROXINE 100 MCG TABLET PO SCH (05:53)
[2022-04-06 08:00] LABS: Basophils # 0.1 10*3/uL (0.0-0.2); Basophils % 0.6 % (0.0-0.8); Eosinophils # 0.1 10*3/uL (0.0-0.87); Eosinophils % 1.6 % (0.00-10.9); Hematocrit 41.6 VOL% (42.0-52.0); Hemoglobin 12.9 GM/DL (14.0-18.0); Immature Granulocytes % 0.6 %; Immature Granulocytes Absolute 0.05 #; Lymphocytes # 1.6 10*3/uL (1.4-4.0); Lymphocytes % 18.4 % (21.2-54.2); Mean Corpuscular Volume 95.4 FL (87-102); Mean Platelet Volume 10.6 FL (9.6-12.0); Monocytes # 0.9 10*3/uL (0.11-0.8); Monocytes % 10.6 % (1.7-12.7); Neutrophils % 68.2 % (38.7-73.9); Platelet Count 147 T/CUMM (130-400); Red Blood Count 4.36 MC/CUMM (3.8-5.5); Red Cell Distribution Width 15.6 % (9.3-17.3); White Blood Count 8.7 T/CUMM (4-12)
[2022-04-06 08:17] LABS: Calcium 9.4 MG/DL (8.5-10.1)
[2022-04-06] MEDS: DOCUSATE SODIUM 100 MG CAPSULE PO SCH ×2 (08:28→21:40)
[2022-04-06] MEDS: busPIRone 5 MG TABLET PO SCH ×2 (08:28→21:40)
[2022-04-06] MEDS: ESCITALOPRAM 10 MG TABLET PO SCH (08:28)
[2022-04-06] MEDS: PANTOPRAZOLE 40 MG TABLET PO SCH (08:28)
[2022-04-06] MEDS: ATORVASTATIN 80 MG TABLET PO SCH (08:28)
[2022-04-06] MEDS: ASPIRIN EC 81 MG TABLET PO SCH (08:28)
[2022-04-06] MEDS: TAMSULOSIN 0.4 MG CAPSULE PO SCH ×2 (08:28→21:40)
[2022-04-06] MEDS: FUROSEMIDE 40 MG/4 ML VIAL IV SCH (08:29)
[2022-04-06] MEDS: FINASTERIDE 5 MG TABLET PO SCH (08:29)
[2022-04-06] MEDS: INSULIN LISPRO 100 UNIT/ML SUBCUT SCH ×4 (08:55→21:40)
[2022-04-06] MEDS ORDERED: LACTATED RINGERS 1,000 ML IV SCH (12:30)
[2022-04-06] MEDS: ENOXAPARIN 40 MG/0.4 ML SYRINGE SUBCUT SCH (21:40)
[2022-04-07] MEDS: LEVOTHYROXINE 100 MCG TABLET PO SCH (05:23)
[2022-04-07 05:28] LABS: Calcium 9.4 MG/DL (8.5-10.1); Osmolality,Calculated 288.5 MOS/KG (273-304); Potassium 3.6 MMOL/L (3.5-5.1)
[2022-04-07 05:30] LABS: Basophils # 0.1 10*3/uL (0.0-0.2); Basophils % 0.6 % (0.0-0.8); Eosinophils # 0.2 10*3/uL (0.0-0.87); Eosinophils % 1.5 % (0.00-10.9); Hematocrit 46.3 VOL% (42.0-52.0); Hemoglobin 14.2 GM/DL (14.0-18.0); Immature Granulocytes % 0.8 %; Lymphocytes # 2.1 10*3/uL (1.4-4.0); Lymphocytes % 16.5 % (21.2-54.2); Mean Corpuscular HGB Conc 30.7 GM/DL (32-36); Mean Corpuscular Volume 96.7 FL (87-102); Mean Platelet Volume 11.6 FL (9.6-12.0); Monocytes # 1.2 10*3/uL (0.11-0.8); Monocytes % 9.6 % (1.7-12.7); Platelet Count 168 T/CUMM (130-400); Red Blood Count 4.79 MC/CUMM (3.8-5.5); Red Cell Distribution Width 15.6 % (9.3-17.3); White Blood Count 12.6 T/CUMM (4-12)
[2022-04-07] MEDS: INSULIN LISPRO 100 UNIT/ML SUBCUT SCH ×4 (07:20→21:27)
[2022-04-07] MEDS: DOCUSATE SODIUM 100 MG CAPSULE PO SCH ×2 (09:02→21:27)
[2022-04-07] MEDS: TAMSULOSIN 0.4 MG CAPSULE PO SCH ×2 (09:02→21:27)
[2022-04-07] MEDS: PANTOPRAZOLE 40 MG TABLET PO SCH (09:02)
[2022-04-07] MEDS: ATORVASTATIN 80 MG TABLET PO SCH (09:02)
[2022-04-07] MEDS: FINASTERIDE 5 MG TABLET PO SCH (09:02)
[2022-04-07] MEDS: busPIRone 5 MG TABLET PO SCH ×2 (09:02→21:27)
[2022-04-07] MEDS: ASPIRIN EC 81 MG TABLET PO SCH (09:02)
[2022-04-07] MEDS: ESCITALOPRAM 10 MG TABLET PO SCH (09:02)
[2022-04-07] MEDS: hydrALAZINE 10 MG TABLET PO SCH (21:26)
[2022-04-07] MEDS: ENOXAPARIN 40 MG/0.4 ML SYRINGE SUBCUT SCH (21:27)
[2022-04-08] MEDS ORDERED: ALUMINUM/MAGNES/SIMETH MAX STR 30 ML UDCUP PO PRN (01:50)
[2022-04-08] MEDS: LEVOTHYROXINE 100 MCG TABLET PO SCH (05:24)
[2022-04-08] MEDS: ESCITALOPRAM 10 MG TABLET PO SCH (08:26)
[2022-04-08] MEDS: DAPAGLIFLOZIN 10 MG TABLET PO SCH (08:26)
[2022-04-08] MEDS: ASPIRIN EC 81 MG TABLET PO SCH (08:26)
[2022-04-08] MEDS: SPIRONOLACTONE 25 MG TABLET PO SCH (08:26)
[2022-04-08] MEDS: DOCUSATE SODIUM 100 MG CAPSULE PO SCH ×2 (08:27→22:12)
[2022-04-08] MEDS: hydrALAZINE 10 MG TABLET PO SCH ×2 (08:27→22:12)
[2022-04-08] MEDS: PANTOPRAZOLE 40 MG TABLET PO SCH (08:27)
[2022-04-08] MEDS: ATORVASTATIN 80 MG TABLET PO SCH (08:27)
[2022-04-08] MEDS: FINASTERIDE 5 MG TABLET PO SCH (08:27)
[2022-04-08] MEDS: TAMSULOSIN 0.4 MG CAPSULE PO SCH ×2 (08:27→22:13)
[2022-04-08] MEDS: INSULIN LISPRO 100 UNIT/ML SUBCUT SCH ×4 (08:27→22:41)
[2022-04-08] MEDS: busPIRone 5 MG TABLET PO SCH ×2 (08:27→22:12)
[2022-04-08 09:18] LABS: Calcium 9.2 MG/DL (8.5-10.1); Potassium 3.8 MMOL/L (3.5-5.1)
[2022-04-08 09:19] LABS: Basophils # 0.1 10*3/uL (0.0-0.2); Basophils % 0.6 % (0.0-0.8); Eosinophils # 0.2 10*3/uL (0.0-0.87); Eosinophils % 1.9 % (0.00-10.9); Hematocrit 44.4 VOL% (42.0-52.0); Hemoglobin 13.5 GM/DL (14.0-18.0); Immature Granulocytes % 0.7 %; Immature Granulocytes Absolute 0.07 #; Lymphocytes # 1.4 10*3/uL (1.4-4.0); Lymphocytes % 14.2 % (21.2-54.2); Mean Corpuscular HGB Conc 30.4 GM/DL (32-36); Mean Corpuscular Volume 96.7 FL (87-102); Mean Platelet Volume 11.2 FL (9.6-12.0); Monocytes # 0.6 10*3/uL (0.11-0.8); Monocytes % 6.5 % (1.7-12.7); Neutrophils % 76.1 % (38.7-73.9); Platelet Count 151 T/CUMM (130-400); Red Blood Count 4.59 MC/CUMM (3.8-5.5); Red Cell Distribution Width 15.3 % (9.3-17.3); White Blood Count 9.9 T/CUMM (4-12)
[2022-04-08] MEDS: HEPARIN 5,000 UNIT/1 ML VIAL SUBCUT SCH (22:41)
[2022-04-09] MEDS: LEVOTHYROXINE 100 MCG TABLET PO SCH (05:21)
[2022-04-09 05:31] LABS: Basophils # 0.1 10*3/uL (0.0-0.2); Basophils % 0.5 % (0.0-0.8); Eosinophils # 0.3 10*3/uL (0.0-0.87); Eosinophils % 3.2 % (0.00-10.9); Hematocrit 42.8 VOL% (42.0-52.0); Hemoglobin 13.2 GM/DL (14.0-18.0); Immature Granulocytes % 0.8 %; Immature Granulocytes Absolute 0.07 #; Lymphocytes # 2.1 10*3/uL (1.4-4.0); Lymphocytes % 22.7 % (21.2-54.2); Mean Corpuscular HGB Conc 30.8 GM/DL (32-36); Mean Corpuscular Volume 94.9 FL (87-102); Mean Platelet Volume 11.6 FL (9.6-12.0); Monocytes # 0.8 10*3/uL (0.11-0.8); Monocytes % 8.7 % (1.7-12.7); Neutrophils % 64.1 % (38.7-73.9); Platelet Count 141 T/CUMM (130-400); Red Blood Count 4.51 MC/CUMM (3.8-5.5); Red Cell Distribution Width 15.1 % (9.3-17.3); White Blood Count 9.1 T/CUMM (4-12)
[2022-04-09 05:55] LABS: Calcium 8.9 MG/DL (8.5-10.1); Potassium 3.5 MMOL/L (3.5-5.1)
[2022-04-09] MEDS: INSULIN LISPRO 100 UNIT/ML SUBCUT SCH ×4 (08:18→20:47)
[2022-04-09] MEDS: hydrALAZINE 10 MG TABLET PO SCH ×2 (08:20→20:48)
[2022-04-09] MEDS: DAPAGLIFLOZIN 10 MG TABLET PO SCH (09:22)
[2022-04-09] MEDS: ESCITALOPRAM 10 MG TABLET PO SCH (09:22)
[2022-04-09] MEDS: ASPIRIN EC 81 MG TABLET PO SCH (09:22)
[2022-04-09] MEDS: SPIRONOLACTONE 25 MG TABLET PO SCH (09:22)
[2022-04-09] MEDS: TAMSULOSIN 0.4 MG CAPSULE PO SCH ×2 (09:22→20:46)
[2022-04-09] MEDS: DOCUSATE SODIUM 100 MG CAPSULE PO SCH ×2 (09:22→20:46)
[2022-04-09] MEDS: busPIRone 5 MG TABLET PO SCH ×2 (09:22→20:46)
[2022-04-09] MEDS: FINASTERIDE 5 MG TABLET PO SCH (09:22)
[2022-04-09] MEDS: PANTOPRAZOLE 40 MG TABLET PO SCH (09:22)
[2022-04-09] MEDS: ATORVASTATIN 80 MG TABLET PO SCH (09:22)
[2022-04-09] MEDS: HEPARIN 5,000 UNIT/1 ML VIAL SUBCUT SCH ×2 (09:23→20:47)
[2022-04-09] MEDS ORDERED: TUBERCULIN SKIN TEST 0.1 ML SYRINGE INTRADERM ONE (10:42)
[2022-04-09] MEDS: FUROSEMIDE 40 MG/4 ML VIAL IV SCH (20:47)
[2022-04-10 05:04] LABS: Basophils # 0.1 10*3/uL (0.0-0.2); Basophils % 0.7 % (0.0-0.8); Eosinophils # 0.2 10*3/uL (0.0-0.87); Eosinophils % 2.4 % (0.00-10.9); Hematocrit 43.6 VOL% (42.0-52.0); Hemoglobin 13.7 GM/DL (14.0-18.0); Immature Granulocytes % 0.5 %; Immature Granulocytes Absolute 0.04 #; Lymphocytes # 1.8 10*3/uL (1.4-4.0); Lymphocytes % 20.8 % (21.2-54.2); Mean Corpuscular HGB Conc 31.4 GM/DL (32-36); Mean Corpuscular Volume 94.2 FL (87-102); Mean Platelet Volume 11.4 FL (9.6-12.0); Monocytes # 0.8 10*3/uL (0.11-0.8); Monocytes % 9.1 % (1.7-12.7); Neutrophils % 66.5 % (38.7-73.9); Platelet Count 136 T/CUMM (130-400); Red Blood Count 4.63 MC/CUMM (3.8-5.5); Red Cell Distribution Width 15.4 % (9.3-17.3); White Blood Count 8.4 T/CUMM (4-12)
[2022-04-10 05:29] LABS: Calcium 9.4 MG/DL (8.5-10.1); Osmolality,Calculated 286.7 MOS/KG (273-304); Potassium 3.6 MMOL/L (3.5-5.1)
[2022-04-10] MEDS: LEVOTHYROXINE 100 MCG TABLET PO SCH (06:58)
[2022-04-10] MEDS: FUROSEMIDE 40 MG/4 ML VIAL IV SCH ×2 (10:08→21:05)
[2022-04-10] MEDS: INSULIN LISPRO 100 UNIT/ML SUBCUT SCH ×4 (11:17→23:20)
[2022-04-10] MEDS: SPIRONOLACTONE 25 MG TABLET PO SCH (11:18)
[2022-04-10] MEDS: ASPIRIN EC 81 MG TABLET PO SCH (11:18)
[2022-04-10] MEDS: hydrALAZINE 10 MG TABLET PO SCH ×2 (11:18→21:04)
[2022-04-10] MEDS: TAMSULOSIN 0.4 MG CAPSULE PO SCH ×2 (11:19→21:01)
[2022-04-10] MEDS: busPIRone 5 MG TABLET PO SCH ×2 (11:19→20:59)
[2022-04-10] MEDS: DAPAGLIFLOZIN 10 MG TABLET PO SCH (11:19)
[2022-04-10] MEDS: DOCUSATE SODIUM 100 MG CAPSULE PO SCH ×2 (11:19→20:59)
[2022-04-10] MEDS: HEPARIN 5,000 UNIT/1 ML VIAL SUBCUT SCH (11:32)
[2022-04-10] MEDS: FINASTERIDE 5 MG TABLET PO SCH (11:33)
[2022-04-10] MEDS: PANTOPRAZOLE 40 MG TABLET PO SCH (11:33)
[2022-04-10] MEDS: ESCITALOPRAM 10 MG TABLET PO SCH (11:33)
[2022-04-10] MEDS: ATORVASTATIN 80 MG TABLET PO SCH (11:33)
[2022-04-10] MEDS ORDERED: diphenhydrAMINE CAP 25 MG CAPSULE PO ONE (12:45)
[2022-04-10] MEDS ORDERED: DIAZEPAM 5 MG TABLET PO ONE (12:45)
[2022-04-10] MEDS ORDERED: HEPARIN/NACL 0.9% 2 UNITS/ML 2,000 UNIT/1,000 ML BAG IV ONE (12:54)
[2022-04-10] MEDS ORDERED: SODIUM CHLORIDE 0.45% 1,000 ML IV SCH (13:00)
[2022-04-10] MEDS: metOLazone 5 MG TABLET PO SCH (21:04)
[2022-04-11 04:57] LABS: Basophils # 0.1 10*3/uL (0.0-0.2); Basophils % 0.7 % (0.0-0.8); Eosinophils # 0.2 10*3/uL (0.0-0.87); Hematocrit 44.4 VOL% (42.0-52.0); Hemoglobin 13.7 GM/DL (14.0-18.0); Immature Granulocytes % 0.6 %; Immature Granulocytes Absolute 0.06 #; Lymphocytes # 1.6 10*3/uL (1.4-4.0); Lymphocytes % 16.6 % (21.2-54.2); Mean Corpuscular HGB Conc 30.9 GM/DL (32-36); Mean Corpuscular Volume 97.4 FL (87-102); Mean Platelet Volume 11.9 FL (9.6-12.0); Monocytes # 0.8 10*3/uL (0.11-0.8); Monocytes % 8.5 % (1.7-12.7); Neutrophils % 71.6 % (38.7-73.9); Platelet Count 144 T/CUMM (130-400); Red Blood Count 4.56 MC/CUMM (3.8-5.5); Red Cell Distribution Width 15.6 % (9.3-17.3); White Blood Count 9.9 T/CUMM (4-12)
[2022-04-11 05:16] LABS: Calcium 10.1 MG/DL (8.5-10.1); Osmolality,Calculated 289.7 MOS/KG (273-304); Potassium 4.1 MMOL/L (3.5-5.1)
[2022-04-11] MEDS: LEVOTHYROXINE 100 MCG TABLET PO SCH (06:03)
[2022-04-11] MEDS: FUROSEMIDE 40 MG/4 ML VIAL IV SCH ×2 (09:28→21:31)
[2022-04-11] MEDS: PANTOPRAZOLE 40 MG TABLET PO SCH (09:28)
[2022-04-11] MEDS: ASPIRIN EC 81 MG TABLET PO SCH (09:28)
[2022-04-11] MEDS: busPIRone 5 MG TABLET PO SCH ×2 (09:29→21:30)
[2022-04-11] MEDS: ESCITALOPRAM 10 MG TABLET PO SCH (09:29)
[2022-04-11] MEDS: SPIRONOLACTONE 25 MG TABLET PO SCH (09:29)
[2022-04-11] MEDS: metOLazone 5 MG TABLET PO SCH (09:29)
[2022-04-11] MEDS: ATORVASTATIN 80 MG TABLET PO SCH (09:30)
[2022-04-11] MEDS: DAPAGLIFLOZIN 10 MG TABLET PO SCH (09:30)
[2022-04-11] MEDS: DOCUSATE SODIUM 100 MG CAPSULE PO SCH ×2 (09:30→21:30)
[2022-04-11] MEDS: hydrALAZINE 10 MG TABLET PO SCH ×2 (09:30→21:30)
[2022-04-11] MEDS: FINASTERIDE 5 MG TABLET PO SCH (09:30)
[2022-04-11] MEDS: TAMSULOSIN 0.4 MG CAPSULE PO SCH ×2 (09:30→21:30)
[2022-04-11] MEDS: INSULIN LISPRO 100 UNIT/ML SUBCUT SCH ×4 (09:34→21:34)
[2022-04-11 10:17] LABS: INR 1.2; PT Patient Result 12.9 SECS (10.1-12.1)
[2022-04-11 12:22] LABS: Neutrophils,Peritoneal Fluid 64 %; RBC,Peritoneal Fluid 11400 T/CUMM
[2022-04-11] MEDS: ZINC OXIDE PASTE 113 GM TUBE TOP SCH (21:33)
[2022-04-12 05:04] LABS: Basophils # 0.1 10*3/uL (0.0-0.2); Basophils % 0.6 % (0.0-0.8); Eosinophils # 0.2 10*3/uL (0.0-0.87); Eosinophils % 2.3 % (0.00-10.9); Hematocrit 42.7 VOL% (42.0-52.0); Hemoglobin 13.5 GM/DL (14.0-18.0); Immature Granulocytes % 0.5 %; Immature Granulocytes Absolute 0.04 #; Lymphocytes # 2.1 10*3/uL (1.4-4.0); Lymphocytes % 25.6 % (21.2-54.2); Mean Corpuscular HGB Conc 31.6 GM/DL (32-36); Mean Corpuscular Volume 93.6 FL (87-102); Monocytes # 0.7 10*3/uL (0.11-0.8); Monocytes % 9.1 % (1.7-12.7); Neutrophils % 61.9 % (38.7-73.9); Platelet Count 128 T/CUMM (130-400); Red Blood Count 4.56 MC/CUMM (3.8-5.5); Red Cell Distribution Width 15.6 % (9.3-17.3); White Blood Count 8.2 T/CUMM (4-12)
[2022-04-12 05:17] LABS: Calcium 9.8 MG/DL (8.5-10.1); Osmolality,Calculated 286.8 MOS/KG (273-304); Potassium 3.7 MMOL/L (3.5-5.1)
[2022-04-12] MEDS: LEVOTHYROXINE 100 MCG TABLET PO SCH (07:13)
[2022-04-12] MEDS: hydrALAZINE 10 MG TABLET PO SCH ×2 (08:46→22:21)
[2022-04-12] MEDS: FINASTERIDE 5 MG TABLET PO SCH (09:02)
[2022-04-12] MEDS: DOCUSATE SODIUM 100 MG CAPSULE PO SCH ×2 (09:02→20:55)
[2022-04-12] MEDS: ATORVASTATIN 80 MG TABLET PO SCH (09:02)
[2022-04-12] MEDS: DAPAGLIFLOZIN 10 MG TABLET PO SCH (09:02)
[2022-04-12] MEDS: ESCITALOPRAM 10 MG TABLET PO SCH (09:02)
[2022-04-12] MEDS: ASPIRIN EC 81 MG TABLET PO SCH (09:02)
[2022-04-12] MEDS: TAMSULOSIN 0.4 MG CAPSULE PO SCH ×2 (09:02→20:55)
[2022-04-12] MEDS: PANTOPRAZOLE 40 MG TABLET PO SCH (09:02)
[2022-04-12] MEDS: busPIRone 5 MG TABLET PO SCH ×2 (09:02→20:55)
[2022-04-12] MEDS: TORSEMIDE 20 MG TABLET PO SCH (09:02)
[2022-04-12] MEDS: ZINC OXIDE PASTE 113 GM TUBE TOP SCH ×2 (09:03→20:55)
[2022-04-12] MEDS: INSULIN LISPRO 100 UNIT/ML SUBCUT SCH ×4 (09:03→22:22)
[2022-04-12] MEDS: ISOSORBIDE MONONITRATE 30 MG TABLET PO SCH (09:38)
[2022-04-12] MEDS: cefTRIAXone 2,000 MG in SODIUM CHLORIDE 0.9% 100 ML IV SCH (09:39)
[2022-04-12] MEDS: ALBUMIN 25% 25 GM/100 ML VIAL IV SCH ×2 (11:45→18:08)
[2022-04-13] MEDS: ALBUMIN 25% 25 GM/100 ML VIAL IV SCH (01:30)
[2022-04-13 05:21] LABS: Osmolality,Calculated 294.5 MOS/KG (273-304); Potassium 3.7 MMOL/L (3.5-5.1)
[2022-04-13] MEDS: LEVOTHYROXINE 100 MCG TABLET PO SCH (05:33)
[2022-04-13 06:46] LABS: Basophils % 0.5 % (0.0-0.8); Eosinophils # 0.2 10*3/uL (0.0-0.87); Eosinophils % 2.6 % (0.00-10.9); Hematocrit 40.4 VOL% (42.0-52.0); Hemoglobin 12.8 GM/DL (14.0-18.0); Immature Granulocytes % 0.4 %; Immature Granulocytes Absolute 0.03 #; Lymphocytes # 1.7 10*3/uL (1.4-4.0); Lymphocytes % 20.5 % (21.2-54.2); Mean Corpuscular HGB Conc 31.7 GM/DL (32-36); Mean Corpuscular Volume 94.4 FL (87-102); Mean Platelet Volume 11.9 FL (9.6-12.0); Monocytes # 0.8 10*3/uL (0.11-0.8); Platelet Count 131 T/CUMM (130-400); Red Blood Count 4.28 MC/CUMM (3.8-5.5); Red Cell Distribution Width 15.7 % (9.3-17.3); White Blood Count 8.5 T/CUMM (4-12)
[2022-04-13] MEDS: ESCITALOPRAM 10 MG TABLET PO SCH (09:51)
[2022-04-13] MEDS: TORSEMIDE 20 MG TABLET PO SCH (09:51)
[2022-04-13] MEDS: PANTOPRAZOLE 40 MG TABLET PO SCH (09:51)
[2022-04-13] MEDS: FINASTERIDE 5 MG TABLET PO SCH (09:51)
[2022-04-13] MEDS: TAMSULOSIN 0.4 MG CAPSULE PO SCH ×2 (09:51→21:54)
[2022-04-13] MEDS: ISOSORBIDE MONONITRATE 30 MG TABLET PO SCH (09:51)
[2022-04-13] MEDS: busPIRone 5 MG TABLET PO SCH ×2 (09:51→21:54)
[2022-04-13] MEDS: ATORVASTATIN 80 MG TABLET PO SCH (09:51)
[2022-04-13] MEDS: DOCUSATE SODIUM 100 MG CAPSULE PO SCH ×2 (09:51→21:54)
[2022-04-13] MEDS: ASPIRIN EC 81 MG TABLET PO SCH (09:51)
[2022-04-13] MEDS: DAPAGLIFLOZIN 10 MG TABLET PO SCH (09:51)
[2022-04-13] MEDS: hydrALAZINE 10 MG TABLET PO SCH ×2 (09:52→21:54)
[2022-04-13] MEDS: INSULIN LISPRO 100 UNIT/ML SUBCUT SCH ×4 (09:52→22:13)
[2022-04-13] MEDS: ZINC OXIDE PASTE 113 GM TUBE TOP SCH ×2 (09:53→21:54)
[2022-04-13] MEDS: cefTRIAXone 2,000 MG in SODIUM CHLORIDE 0.9% 100 ML IV SCH (11:33)
[2022-04-14 05:52] LABS: Basophils # 0.1 10*3/uL (0.0-0.2); Basophils % 0.5 % (0.0-0.8); Eosinophils # 0.3 10*3/uL (0.0-0.87); Eosinophils % 3.3 % (0.00-10.9); Hematocrit 41.4 VOL% (42.0-52.0); Hemoglobin 13.2 GM/DL (14.0-18.0); Immature Granulocytes % 0.5 %; Immature Granulocytes Absolute 0.05 #; Lymphocytes % 21.6 % (21.2-54.2); Mean Corpuscular HGB Conc 31.9 GM/DL (32-36); Mean Corpuscular Volume 93.7 FL (87-102); Monocytes # 0.8 10*3/uL (0.11-0.8); Monocytes % 8.2 % (1.7-12.7); Neutrophils % 65.9 % (38.7-73.9); Platelet Count 132 T/CUMM (130-400); Red Blood Count 4.42 MC/CUMM (3.8-5.5); Red Cell Distribution Width 15.4 % (9.3-17.3); White Blood Count 9.5 T/CUMM (4-12)
[2022-04-14 05:58] LABS: Calcium 10.2 MG/DL (8.5-10.1); Osmolality,Calculated 285.1 MOS/KG (273-304); Potassium 3.4 MMOL/L (3.5-5.1)
[2022-04-14] MEDS: LEVOTHYROXINE 100 MCG TABLET PO SCH (06:18)
[2022-04-14 06:47] LABS: Platelet Estimate Adequate
[2022-04-14 06:48] LABS: Anisocytosis 1+; Atypical Lymphocytes 1+; Burr Cells Few; Ovalocytes Few; Poikilocytosis Slight
[2022-04-14] MEDS ORDERED: POTASSIUM CHLORIDE 20 MEQ TABLET PO ONE (07:39)
[2022-04-14] MEDS: INSULIN LISPRO 100 UNIT/ML SUBCUT SCH ×4 (08:18→23:40)
[2022-04-14] MEDS: DOCUSATE SODIUM 100 MG CAPSULE PO SCH ×2 (09:04→21:42)
[2022-04-14] MEDS: TORSEMIDE 20 MG TABLET PO SCH (09:05)
[2022-04-14] MEDS: ATORVASTATIN 80 MG TABLET PO SCH (09:05)
[2022-04-14] MEDS: TAMSULOSIN 0.4 MG CAPSULE PO SCH ×2 (09:05→21:41)
[2022-04-14] MEDS: DAPAGLIFLOZIN 10 MG TABLET PO SCH (09:05)
[2022-04-14] MEDS: ASPIRIN EC 81 MG TABLET PO SCH (09:05)
[2022-04-14] MEDS: FINASTERIDE 5 MG TABLET PO SCH (09:05)
[2022-04-14] MEDS: PANTOPRAZOLE 40 MG TABLET PO SCH (09:05)
[2022-04-14] MEDS: busPIRone 5 MG TABLET PO SCH ×2 (09:06→21:41)
[2022-04-14] MEDS: ESCITALOPRAM 10 MG TABLET PO SCH (09:06)
[2022-04-14] MEDS: ISOSORBIDE MONONITRATE 30 MG TABLET PO SCH (09:06)
[2022-04-14] MEDS: ZINC OXIDE PASTE 113 GM TUBE TOP SCH ×2 (09:07→21:42)
[2022-04-14] MEDS: hydrALAZINE 10 MG TABLET PO SCH ×2 (09:08→21:42)
[2022-04-14] MEDS: cefTRIAXone 2,000 MG in SODIUM CHLORIDE 0.9% 100 ML IV SCH (09:09)
[2022-04-15 05:03] LABS: Basophils % 0.6 % (0.0-0.8); Eosinophils # 0.3 10*3/uL (0.0-0.87); Eosinophils % 4.3 % (0.00-10.9); Hematocrit 39.6 VOL% (42.0-52.0); Hemoglobin 12.3 GM/DL (14.0-18.0); Immature Granulocytes % 0.4 %; Immature Granulocytes Absolute 0.03 #; Lymphocytes # 1.4 10*3/uL (1.4-4.0); Mean Corpuscular HGB Conc 31.1 GM/DL (32-36); Mean Corpuscular Volume 93.4 FL (87-102); Monocytes # 0.6 10*3/uL (0.11-0.8); Monocytes % 8.5 % (1.7-12.7); Neutrophils % 67.2 % (38.7-73.9); Platelet Count 125 T/CUMM (130-400); Red Blood Count 4.24 MC/CUMM (3.8-5.5); Red Cell Distribution Width 15.7 % (9.3-17.3); White Blood Count 7.3 T/CUMM (4-12)
[2022-04-15 05:21] LABS: Osmolality,Calculated 297.5 MOS/KG (273-304); Potassium 3.4 MMOL/L (3.5-5.1)
[2022-04-15] MEDS: LEVOTHYROXINE 100 MCG TABLET PO SCH (06:02)
[2022-04-15] MEDS: hydrALAZINE 10 MG TABLET PO SCH ×2 (08:31→21:25)
[2022-04-15] MEDS: DOCUSATE SODIUM 100 MG CAPSULE PO SCH ×2 (08:44→21:24)
[2022-04-15] MEDS: busPIRone 5 MG TABLET PO SCH ×2 (08:44→21:25)
[2022-04-15] MEDS: TORSEMIDE 20 MG TABLET PO SCH (08:44)
[2022-04-15] MEDS: INSULIN LISPRO 100 UNIT/ML SUBCUT SCH ×4 (08:44→20:02)
[2022-04-15] MEDS: ASPIRIN EC 81 MG TABLET PO SCH (08:44)
[2022-04-15] MEDS: ZINC OXIDE PASTE 113 GM TUBE TOP SCH ×2 (08:45→21:25)
[2022-04-15] MEDS: FINASTERIDE 5 MG TABLET PO SCH (08:45)
[2022-04-15] MEDS: TAMSULOSIN 0.4 MG CAPSULE PO SCH ×2 (08:45→21:24)
[2022-04-15] MEDS: ESCITALOPRAM 10 MG TABLET PO SCH (08:45)
[2022-04-15] MEDS: PANTOPRAZOLE 40 MG TABLET PO SCH (08:45)
[2022-04-15] MEDS: ISOSORBIDE MONONITRATE 30 MG TABLET PO SCH (08:45)
[2022-04-15] MEDS: DAPAGLIFLOZIN 10 MG TABLET PO SCH (08:45)
[2022-04-15] MEDS: ATORVASTATIN 80 MG TABLET PO SCH (08:45)
[2022-04-15] MEDS: cefTRIAXone 2,000 MG in SODIUM CHLORIDE 0.9% 100 ML IV SCH (10:00)
[2022-04-15] MEDS ORDERED: POTASSIUM CHLORIDE 20 MEQ TABLET PO ONE (11:02)
[2022-04-16 05:09] LABS: Basophils # 0.1 10*3/uL (0.0-0.2); Basophils % 0.7 % (0.0-0.8); Eosinophils # 0.2 10*3/uL (0.0-0.87); Hematocrit 39.6 VOL% (42.0-52.0); Hemoglobin 12.3 GM/DL (14.0-18.0); Immature Granulocytes % 0.7 %; Immature Granulocytes Absolute 0.06 #; Lymphocytes # 1.7 10*3/uL (1.4-4.0); Lymphocytes % 18.4 % (21.2-54.2); Mean Corpuscular HGB Conc 31.1 GM/DL (32-36); Mean Corpuscular Volume 93.6 FL (87-102); Monocytes # 0.9 10*3/uL (0.11-0.8); Monocytes % 9.4 % (1.7-12.7); Neutrophils % 68.8 % (38.7-73.9); Platelet Count 126 T/CUMM (130-400); Red Blood Count 4.23 MC/CUMM (3.8-5.5); Red Cell Distribution Width 15.7 % (9.3-17.3); White Blood Count 9.1 T/CUMM (4-12)
[2022-04-16 05:24] LABS: Calcium 10.3 MG/DL (8.5-10.1); Potassium 4.3 MMOL/L (3.5-5.1)
[2022-04-16] MEDS: LEVOTHYROXINE 100 MCG TABLET PO SCH (05:34)
[2022-04-16] MEDS: ASPIRIN EC 81 MG TABLET PO SCH (08:55)
[2022-04-16] MEDS: FINASTERIDE 5 MG TABLET PO SCH (08:56)
[2022-04-16] MEDS: TAMSULOSIN 0.4 MG CAPSULE PO SCH (08:56)
[2022-04-16] MEDS: ESCITALOPRAM 10 MG TABLET PO SCH (08:56)
[2022-04-16] MEDS: DOCUSATE SODIUM 100 MG CAPSULE PO SCH (08:56)
[2022-04-16] MEDS: hydrALAZINE 10 MG TABLET PO SCH (08:56)
[2022-04-16] MEDS: ISOSORBIDE MONONITRATE 30 MG TABLET PO SCH (08:56)
[2022-04-16] MEDS: ATORVASTATIN 80 MG TABLET PO SCH (08:56)
[2022-04-16] MEDS: DAPAGLIFLOZIN 10 MG TABLET PO SCH (08:57)
[2022-04-16] MEDS: PANTOPRAZOLE 40 MG TABLET PO SCH (08:57)
[2022-04-16] MEDS: busPIRone 5 MG TABLET PO SCH (08:57)
[2022-04-16] MEDS: INSULIN LISPRO 100 UNIT/ML SUBCUT SCH ×2 (08:57→11:33)
[2022-04-16] MEDS: ZINC OXIDE PASTE 113 GM TUBE TOP SCH (08:58)
[2022-04-16] MEDS ORDERED: TORSEMIDE 20 MG TABLET PO SCH (09:00)
[2022-04-16] MEDS ORDERED: SODIUM CHLORIDE 0.9% 500 ML IV ONE (09:05)
[2022-04-16] MEDS ORDERED: OLOPATADINE 0.1% OPH SOLN 5 ML BOTTLE BOTH EYES SCH (10:00)
[2022-04-16] MEDS: cefTRIAXone 2,000 MG in SODIUM CHLORIDE 0.9% 100 ML IV SCH (10:32)
[2022-04-16 12:13] VITALS: BP 90/56
[2022-04-16 13:48] LABS: Calcium 9.4 MG/DL (8.5-10.1); Osmolality,Calculated 289.8 MOS/KG (273-304); Potassium 4.1 MMOL/L (3.5-5.1)
== END 2022-04-16 16:37 | DRG 286 ==
LOC: EDUNIT# → SUATTDRO → EDBD → N.ED 14:49 → SUATTDRO 17:22 → N.EDINP 17:22 → N.TELEN 21:18
PROVIDERS: ADMIT Internal Medicine; ATTEND Internal Medicine
PROC: CLCCHCL (ICD-10-PCS; 2022-04-10 15:15)

== ENCOUNTER 2022-04-22 11:39 | Observation (INO) ==
[2022-04-22 12:10] LABS: Basophils # 0.1 10*3/uL (0.0-0.2); Basophils % 0.7 % (0.0-0.8); Eosinophils # 0.2 10*3/uL (0.0-0.87); Eosinophils % 2.1 % (0.00-10.9); Hematocrit 39.6 VOL% (42.0-52.0); Hemoglobin 12.8 GM/DL (14.0-18.0); Immature Granulocytes % 0.4 %; Immature Granulocytes Absolute 0.03 #; Lymphocytes # 1.5 10*3/uL (1.4-4.0); Lymphocytes % 17.2 % (21.2-54.2); Mean Corpuscular HGB Conc 32.3 GM/DL (32-36); Mean Corpuscular Volume 92.5 FL (87-102); Mean Platelet Volume 11.3 FL (9.6-12.0); Monocytes # 0.8 10*3/uL (0.11-0.8); Monocytes % 9.1 % (1.7-12.7); Neutrophils % 70.5 % (38.7-73.9); Platelet Count 137 T/CUMM (130-400); Red Blood Count 4.28 MC/CUMM (3.8-5.5); Red Cell Distribution Width 16.8 % (9.3-17.3); White Blood Count 8.5 T/CUMM (4-12)
[2022-04-22 12:34] LABS: Albumin 3.4 G/DL (3.4-5.0); Bilirubin,Total 1.6 MG/DL (0.20-1.00); Calcium 10.1 MG/DL (8.5-10.1); Osmolality,Calculated 298.5 MOS/KG (273-304); Total Protein 6.8 G/DL (6.4-8.2)
[2022-04-22] MEDS ORDERED: GLUCAGON 1 MG VIAL IM PRN (13:32)
[2022-04-22] MEDS ORDERED: FUROSEMIDE 40 MG/4 ML VIAL IV STA (13:32)
[2022-04-22] MEDS ORDERED: DEXTROSE 10% 250 ML BAG IV PRN (13:32)
[2022-04-22] MEDS ORDERED: ONDANSETRON 4 MG/2 ML VIAL IV PRN (13:32)
[2022-04-22 13:53] LABS: INR 1.1; PT Patient Result 12.4 SECS (10.1-12.1)
[2022-04-22] MEDS: LACTULOSE 20 GM/30 ML UDCUP PO SCH ×2 (14:18→21:19)
[2022-04-22] MEDS: INSULIN LISPRO 100 UNIT/ML SUBCUT SCH (17:30)
[2022-04-22] MEDS: FUROSEMIDE 40 MG/4 ML VIAL IV SCH (21:19)
[2022-04-23] MEDS: INSULIN LISPRO 100 UNIT/ML SUBCUT SCH ×5 (01:21→21:20)
[2022-04-23 06:10] LABS: Basophils % 0.4 % (0.0-0.8); Eosinophils # 0.2 10*3/uL (0.0-0.87); Eosinophils % 1.8 % (0.00-10.9); Hematocrit 40.6 VOL% (42.0-52.0); Hemoglobin 12.7 GM/DL (14.0-18.0); Immature Granulocytes % 0.4 %; Immature Granulocytes Absolute 0.04 #; Lymphocytes # 1.6 10*3/uL (1.4-4.0); Lymphocytes % 16.7 % (21.2-54.2); Mean Corpuscular HGB Conc 31.3 GM/DL (32-36); Mean Corpuscular Volume 95.8 FL (87-102); Monocytes # 0.7 10*3/uL (0.11-0.8); Monocytes % 7.1 % (1.7-12.7); Neutrophils % 73.6 % (38.7-73.9); Platelet Count 134 T/CUMM (130-400); Red Blood Count 4.24 MC/CUMM (3.8-5.5); Red Cell Distribution Width 17.3 % (9.3-17.3); White Blood Count 9.4 T/CUMM (4-12)
[2022-04-23 06:38] LABS: Albumin 3.3 G/DL (3.4-5.0); Bilirubin,Total 1.4 MG/DL (0.20-1.00); Calcium 10.1 MG/DL (8.5-10.1); Osmolality,Calculated 300.3 MOS/KG (273-304); Potassium 4.1 MMOL/L (3.5-5.1); Total Protein 6.9 G/DL (6.4-8.2)
[2022-04-23] MEDS: PANTOPRAZOLE 40 MG TABLET PO SCH (08:55)
[2022-04-23] MEDS: FUROSEMIDE 40 MG/4 ML VIAL IV SCH ×2 (08:55→21:21)
[2022-04-23] MEDS: LACTULOSE 20 GM/30 ML UDCUP PO SCH ×2 (08:55→21:21)
[2022-04-23] MEDS: HEPARIN 5,000 UNIT/1 ML VIAL SUBCUT SCH (15:47)
[2022-04-23] MEDS ORDERED: ATORVASTATIN 80 MG TABLET PO SCH (21:00)
[2022-04-23] MEDS: hydrALAZINE 10 MG TABLET PO SCH (21:12)
[2022-04-23] MEDS: busPIRone 5 MG TABLET PO SCH (21:21)
[2022-04-23] MEDS: TAMSULOSIN 0.4 MG CAPSULE PO SCH (21:21)
[2022-04-23] MEDS: OLOPATADINE 0.1% OPH SOLN 5 ML BOTTLE BOTH EYES SCH (21:26)
[2022-04-24] MEDS: HEPARIN 5,000 UNIT/1 ML VIAL SUBCUT SCH (02:42)
[2022-04-24 05:16] LABS: Basophils # 0.1 10*3/uL (0.0-0.2); Eosinophils # 0.2 10*3/uL (0.0-0.87); Eosinophils % 1.7 % (0.00-10.9); Hematocrit 42.3 VOL% (42.0-52.0); Hemoglobin 13.3 GM/DL (14.0-18.0); Immature Granulocytes % 0.6 %; Immature Granulocytes Absolute 0.05 #; Lymphocytes # 1.8 10*3/uL (1.4-4.0); Lymphocytes % 19.7 % (21.2-54.2); Mean Corpuscular HGB Conc 31.4 GM/DL (32-36); Mean Corpuscular Volume 93.8 FL (87-102); Monocytes # 0.8 10*3/uL (0.11-0.8); Platelet Count 141 T/CUMM (130-400); Red Blood Count 4.51 MC/CUMM (3.8-5.5); Red Cell Distribution Width 17.2 % (9.3-17.3); White Blood Count 8.9 T/CUMM (4-12)
[2022-04-24 05:44] LABS: Albumin 3.2 G/DL (3.4-5.0); Bilirubin,Total 1.8 MG/DL (0.20-1.00); Calcium 10.1 MG/DL (8.5-10.1); Osmolality,Calculated 299.1 MOS/KG (273-304); Potassium 4.7 MMOL/L (3.5-5.1); Total Protein 6.8 G/DL (6.4-8.2)
[2022-04-24] MEDS ORDERED: LEVOTHYROXINE 100 MCG TABLET PO SCH (06:30)
[2022-04-24] MEDS: INSULIN LISPRO 100 UNIT/ML SUBCUT SCH ×2 (08:50→12:44)
[2022-04-24] MEDS ORDERED: R PO SCH (09:00)
[2022-04-24] MEDS ORDERED: ISOSORBIDE MONONITRATE 30 MG TABLET PO SCH (09:00)
[2022-04-24] MEDS ORDERED: ASPIRIN EC 81 MG TABLET PO SCH (09:00)
[2022-04-24] MEDS ORDERED: FINASTERIDE 5 MG TABLET PO SCH (09:00)
[2022-04-24] MEDS ORDERED: DAPAGLIFLOZIN 10 MG TABLET PO SCH (09:00)
[2022-04-24] MEDS: LACTULOSE 20 GM/30 ML UDCUP PO SCH (10:21)
[2022-04-24] MEDS: FUROSEMIDE 40 MG/4 ML VIAL IV SCH (10:21)
[2022-04-24] MEDS: OLOPATADINE 0.1% OPH SOLN 5 ML BOTTLE BOTH EYES SCH (10:21)
[2022-04-24] MEDS: TAMSULOSIN 0.4 MG CAPSULE PO SCH (10:22)
[2022-04-24] MEDS: hydrALAZINE 10 MG TABLET PO SCH (10:22)
[2022-04-24] MEDS: PANTOPRAZOLE 40 MG TABLET PO SCH (10:22)
[2022-04-24] MEDS: busPIRone 5 MG TABLET PO SCH (10:22)
[2022-04-24 12:44] VITALS: BP 100/66
[2022-04-24] MEDS ORDERED: metOLazone 5 MG TABLET PO SCH (20:00)
== END 2022-04-24 14:39 | disposition hospice, inpatient (51) ==
LOC: N.ED 11:39 → N.EDINP 11:39 → SUATTDRO 13:30 → N.2E 15:23
PROVIDERS: ADMIT Internal Medicine; ATTEND Internal Medicine